=== PATIENT | male | born 1965 | race Caucasian/White ===

== ENCOUNTER 2021-10-26 19:12 | Emergency (ER) | payer MEDICARE ==
[2021-10-26] MEDS ORDERED: CYCLOBENZAPRINE10 MG PO (20:52)
== END 2021-10-26 21:53 | disposition home or self-care (01) ==
LOC: FER 19:12
DX: M54.9 Dorsalgia, unspecified (principal); G89.29 Other chronic pain; F17.200 Nicotine dependence, unspecified, uncomplicated; N18.6 End stage renal disease; Z99.2 Dependence on renal dialysis
CPT/HCPCS: 99282